=== PATIENT | female | born 2000 | race Asian ===

== ENCOUNTER 2020-01-11 13:47 | Emergency (ER) | payer SELFPAY ==
[~2020-01-11] VITALS: Ht 156 cm; Wt 44.0 kg
[2020-01-11 13:57] VITALS: BP 133/95; PULSE 80; TEMP 98.2
[2020-01-11 15:15] LABS: COLLECTION METHOD CLEAN CATCH
[2020-01-11 15:39] LABS: MUCOUS Present /lpf; PH 5 (5-8); URINE APPEARANCE Hazy; URINE BACTERIA None Seen /hpf; URINE BILIRUBIN Negative (NEGATIVE); URINE BLOOD 3+ (NEGATIVE); URINE COLOR Yellow; URINE GLUCOSE Negative (NEGATIVE); URINE KETONE Trace (NEGATIVE); URINE LEUKOCYTE ESTERASE Negative (NEGATIVE); URINE NITRATE Negative (NEGATIVE); URINE PROTEIN(semi-quant) 1+ (NEGATIVE); URINE RBC >50 /hpf; URINE UROBILINOGEN Negative (NEGATIVE)
[2020-01-11] MEDS ORDERED: CEPHALEXIN500 M1 PO (16:19)
== END 2020-01-11 16:56 | disposition home or self-care (01) ==
LOC: COL.ER 13:47
PROVIDERS: Physician Assistant
DX: N39.0 Urinary tract infection, site not specified (principal); Z32.02 Encounter for pregnancy test, result negative; Z88.8 Allergy status to other drugs, medicaments and biological substances